=== PATIENT | female | born 1980 | race Caucasian/White ===

== ENCOUNTER 2017-06-05 08:27 | Outpatient (CLI) | payer BC ==
--- NOTE | 2017-06-05 12:51 | HP ---
DATE OF SERVICE: 06/05/2017 HISTORY OF PRESENT ILLNESS: Ms. Cleopatra Parson is a very pleasant 36-year-old who presents to the [facility] with hidradenitis suppurativa. The patient was referred to the Wound Center by Dr. Alexandrea vazquez on 06/05/2017. The patient is to undergo surgery for hidradenitis suppurativa of the right a nd left groins in the future. The patient has no other complaints today. She denies any fever or c hills. PAST MEDICAL HISTORY: Hidradenitis suppurativa. PAST SURGICAL HISTORY: 1. LEEP for cervical dysplasia. 2. Surgery for hidradenitis suppurativa of the right axilla x2 with skin graft placement. 3. Surgery for hidradenitis suppurativa of the left axilla also with skin graft placement. 4. Surgery for hidradenitis suppurativa of the left medial thigh. 5. Excision of hidradenitis suppurativa of the right medial thigh in October of this year. MEDICATIONS: None. ALLERGIES: IODINE, OMNIPEN, BACTRIM, CECLOR. SOCIAL HISTORY: Negative for tobacco or ETOH use. FAMILY HISTORY: Significant for diabetes mellitus. The patient's mother, father, brother, and mate rnal grandfather were all diagnosed with diabetes mellitus. Family history is negative for coronary artery disease. PHYSICAL EXAMINATION: VITAL SIGNS: Temperature 97.9, pulse 94, respirations 18, blood pressure 116/83. GENERAL: A 36-year-old female sitting on table in examination room in no acute distress. HEENT: Normocephalic, atraumatic. NECK: No nuchal rigidity. CHEST: Clear to auscultation. CARDIAC: Regular rate and rhythm. ABDOMEN: Soft. EXTREMITIES: Hidradenitis of the right and left groins is present. NEUROLOGIC: Grossly nonfocal. ASSESSMENT AND PLAN: Hidradenitis suppurativa of right and left groins. I have told the patient th at after surgery negative pressure therapy will be initiated for her groin wound and dressing change s of the wound VAC performed 2 times per week here in the [facility]ound Center. I have told the patient andrew t the location of the hidradenitis in the labial region will not prevent treatment with the wound VA C postoperatively. The patient understands and is in agreement with the preceding treatment plan. She will return to the Wound Center after surgery for hidradenitis suppurativa by Dr. Monterroso and in itiation of negative pressure therapy.
[2017-06-05] MEDS ORDERED: Sodium Chloride 0.9% 15 ML NEB ONE (17:28)
== END 2017-06-05 08:28 | disposition home or self-care (01) ==
LOC: WCC 08:27
PROVIDERS: ATTEND Family Medicine
DX: L73.2 Hidradenitis suppurativa (principal)
CPT/HCPCS: 97602; 99203; A4218; G0463

== ENCOUNTER 2019-01-20 09:12 | Outpatient (CLI) | payer BC ==
[2019-01-20 11:10] LABS: BHCG - Serum Negative (NEGATIVE); Pregs Control Background? CLEAR/WHITE (CLR/WHITE); Pregs Control Bar Appear? YES (CONTROL BAR)
[2019-01-20 11:21] LABS: #Basophils 0.1 thou/uL (0.0-0.2); #Eosinphils 0.6 thou/uL (0.0-0.7); #Lymphocytes 2.5 thou/uL (1.20-3.40); #Monocytes 0.7 thou/uL (0.11-0.59); #Neutrophils 6.2 thou/uL (1.40-6.50); %Basophils 1.1 % (0.0-1.0); %Eosinophils 5.6 % (0.0-10.0); %Lymphocytes 25.1 % (21.0-51.0); %Monocytes 6.9 % (0.0-10.0); %Neutrophils 61.4 % (42.0-75.0); Hemoglobin 13.2 g/dL (12.0-16.0); Mean Corpuscular HGB CONC 31.8 g/dL (32.0-36.0); Mean Corpuscular Hemoglobin 25.7 pg (27.0-31.0); Mean Corpuscular Volume 80.9 fL (78.0-98.0); Mean Platelet Volume 7.7 fL (7.4-10.4); Platelet Count 405 thou/uL (130-400); Red Blood Cell (RBC) Count 5.15 mill/uL (4.20-5.40); White Blood Cell (WBC) Count 10.1 thou/uL (4.8-10.8)
[2019-01-20 11:23] LABS: ALT (SGPT) Less than 7 U/L (8-55); AST (SGOT) 8 U/L (5-34); Albumin 3.7 g/dL (3.5-5.0); Alkaline Phosphatase 52 U/L (40-150); Anion Gap 12 mmol/L (10-20); BUN (Urea Nitrogen) 14 mg/dL (7.0-18.7); Bilirubin, Direct 0.2 mg/dL (0.1-0.3); Bilirubin, Total 0.3 mg/dL (0.2-1.2); Calc. Creatinine Clearance 0 mL/min (70-130); Calcium 9.5 mg/dL (7.8-10.44); Carbon Dioxide 27 mmol/L (22-29); Chloride 103 mmol/L (98-107); Estimated GFR-MDRD 73; Globulin 3.9 g/dL (2.4-3.5); Glucose 89 mg/dL (70-105); Potassium 4.3 mmol/L (3.5-5.1); Protein, Total 7.6 g/dL (6.0-8.3); Sodium 138 mmol/L (136-145)
== END 2019-01-20 09:13 | disposition home or self-care (01) ==
LOC: LABBT 09:12
PROVIDERS: ATTEND Surgery
DX: Z01.812 Encounter for preprocedural laboratory examination (principal); K80.20 Calculus of gallbladder without cholecystitis without obstruction
CPT/HCPCS: 80053; 80076; 84703; 85025

== ENCOUNTER 2019-01-22 06:48 | Day surgery (SDC) | payer BC ==
[2019-01-20 09:59] VITALS: BMI 49.7
[2019-01-22] MEDS ORDERED: Levofloxacin 500 mg/D5W 100 ml Premix Bag ONE (07:25)
[2019-01-22] MEDS ORDERED: Bupivacaine/Epinephrine 0.25% 30 ML VIAL ONE (08:35)
[2019-01-22] MEDS ORDERED: Midazolam HCl 2 mg/2 ml Vial ONE (08:40)
[2019-01-22] MEDS ORDERED: Fentanyl 100 MCG/2 ML VIAL ONE ×4 (08:40→11:00)
[2019-01-22] MEDS ORDERED: Promethazine HCl 25 MG/ML VIAL ONE (10:13)
[2019-01-22] MEDS ORDERED: Morphine 2 MG/ML SYRINGE ONE (11:34)
[2019-01-22] MEDS ORDERED: HYDROcodone/Acetaminophen 5/325 mg Tablet ONE (11:57)
--- NOTE | 2019-01-22 13:14 | OP ---
DATE OF PROCEDURE: 01/22/2019 PREOPERATIVE DIAGNOSIS: Symptomatic cholelithiasis. PROCEDURE PERFORMED: Laparoscopic cholecystectomy. INDICATIONS: A 38-year-old female, who has been having episodic right upper quadrant pain. Ultrasound showed cholelithiasis. FINDINGS: She had a small caliber cystic duct. Fatty liver. DESCRIPTION OF PROCEDURE: After informed consent was obtained, the patient was taken to the operating room, given general endotracheal anesthesia, placed in supine position. Abdomen was prepped and draped in usual fashion. Local anesthesia infiltrated subcutaneously and deep. A subumbilical incision was performed. Subcu divided sharply. The fascia was grasped with two stay sutures of 0 Vicryl placed in each side of midline. Midline incised. Digital palpation revealed no local adhesions. A blunt 12 mm trocar inserted. Pneumoperitoneum was created to a pressure of 15 mmHg. A 0 degree laparoscope was inserted under direct vision. Three 5 mm ports were placed subcostally. The gallbladder was grasped and advanced superiorly. Peritoneum dissected off the cystic duct artery in critical view. The duct and artery triply ligated with hemoclips and divided. The gallbladder removed from its fossa utilizing electrocautery, removed from the abdomen in an endosac through the umbilical port. Hemostasis achieved. Trocars and retractors removed. The fascia closed with interrupted 2-0 Vicryl suture. The skin closed with interrupted 4-0 Rapide. Dermabond applied. The patient tolerated the procedure well, transferred to Recovery in good condition. Sponge and needle count verified correct x2. Job ID: [id number]
== END 2019-01-22 12:56 | disposition home or self-care (01) ==
LOC: SDC 06:48
PROVIDERS: ATTEND Surgery
PROC: 0FT44ZZ Resection of Gallbladder, Percutaneous Endoscopic Approach (ICD-10-PCS; principal; 2019-01-22)
DX: K80.10 Calculus of gallbladder with chronic cholecystitis without obstruction (principal); K76.0 Fatty (change of) liver, not elsewhere classified; Z88.2 Allergy status to sulfonamides; Z88.1 Allergy status to other antibiotic agents; Z79.899 Other long term (current) drug therapy
CPT/HCPCS: 88304; J0131; J1956; J2250; J2270; J2550; J3010